=== PATIENT | male | born 1985 | race Caucasian/White ===

== ENCOUNTER 2016-08-25 12:51 | Emergency (ER) | payer MEDICAID ==
[~2016-08-25] VITALS: Ht 185.4 cm; Wt 99.8 kg
[2016-08-25 13:08] VITALS: BP 149/84
--- NOTE | 2016-08-25 15:20 | NUR ---
PT AMBULATED TO BED 3 AT THIS TIME.
--- NOTE | 2016-08-25 15:56 | NUR ---
31/M TO ED WITH C/O LEFT FLANK PAIN X2 DAYS AFTER LIVING HEAVY OBJECTS AT WORK. PT DENIES PAIN UPON URINATION. PAIN /. LUNGS CLEAR BILAT. HR EVEN AND REGULAR. AAOX4. VSS. NO SIGNS OF DISTRESS.
[2016-08-25 16:08] VITALS: BP 149/84
--- NOTE | 2016-08-25 16:08 | NUR ---
Patient discharged with v/s stable. Written and verbal after care instructions given and explained. Patient alert, oriented and verbalized understanding of instructions. Ambulatory with steady gait. All questions addressed prior to discharge. ID band removed. Patient advised to follow up with PMD. Rx of MOTRIN, NORCO, FLEXARIL given. Patient educated on indication of medication including possible reaction and side effects. Opportunity to ask questions provided and answered.
== END 2016-08-25 16:08 | disposition home or self-care (01) ==
LOC: MED 12:51
DX: M62.838 Other muscle spasm (principal)

== ENCOUNTER 2019-09-08 21:38 | Emergency (ER) | payer OTHER ==
[~2019-09-08] VITALS: Ht 188 cm; Wt 90.7 kg
[~2019-09-08 21:38] MED LIST: DOL10 PO
[2019-09-08 21:40] VITALS: BP 118/51
--- NOTE | 2019-09-08 21:40 | NUR ---
PT 34 Y/O MALE BIBA BLS FOR C/O GENERAILZED BODY ACHES 10/10 PAIN S/P TAKING NARCAN. PT STATES HE ADMINISTERED NARCAN TO HIMSELF AFTER TAKING HEROIN X 2 DAYS AGO. PT STATES," IT MADE ME FEEL PAIN ALL OVER AND VERY COLD." PT VSS. RESPIRATIONS ARE EVEN AND UNLABORED. SKIN IS WARM AND DRY TOUCH. NEGATIVE COVID SCREEN. MEDHX: PT DENIES ALLERGIES: NKA
--- NOTE | 2019-09-08 21:40 | NUR ---
PT TAKEN TO CHAIR A. PT ABLE TO AMBULATE WITH STEADY GAIT.
--- NOTE | 2019-09-08 21:46 | NUR ---
ASSESSING PT AT CHAIR A.
[2019-09-08] MEDS ORDERED: ONDANSETRON 4 MG ODT PO ONE (21:50)
[2019-09-08] MEDS ORDERED: DICYCLOMINE 20 MG/2 ML VIAL IM ONE (21:50)
--- NOTE | 2019-09-08 21:58 | NUR ---
BENTYL IM ADMINISTERED VIA LEFT DELTOID. AND PO ZOFRAN GIVEN. PT TOLERATED
--- NOTE | 2019-09-08 22:13 | NUR ---
CONTACTED PT'S MOTHER TO SERVICE PARTS COORDINATOR PT. AND MOTHER DOES NOT WANT TO SERVICE PARTS COORDINATOR
--- NOTE | 2019-09-08 22:23 | NUR ---
PT RESTING IN CHAIR A WITH EYES CLOSED. PT RESPONSIVE TO VERBAL STIMULI. RESPIRATIONS ARE EVEN AND UNALBORED.
--- NOTE | 2019-09-08 22:23 | NUR ---
BIOANALYST CALLED FOR A HOMELESS PACKET AND BUS PASS.
--- NOTE | 2019-09-08 22:50 | NUR ---
PT REFUSING TO LEAVE FAST TRACK CHAIR. OFFERED BUS PASS, HOMELESS RESOURCE PACKET, AND MEAL. PT PROVIDED WITH BLANKET, AND WAS WEARING WEATHER APPROPRAITE CLOTHING. INSTRUCTED PATIENT TO LEAVE PATIENT CARE AREA. PT LEFT TO LOBBY.
== END 2019-09-08 22:25 | disposition home or self-care (01) ==
LOC: MED 21:38
DX: F11.23 Opioid dependence with withdrawal (principal); F11.90 Opioid use, unspecified, uncomplicated; Z79.891 Long term (current) use of opiate analgesic; Z79.899 Other long term (current) drug therapy
CPT/HCPCS: 96372; 99283; J0500; Q0162

== ENCOUNTER 2022-06-10 18:22 | Emergency (ER) | payer OTHER ==
[~2022-06-10] VITALS: Ht 185.4 cm; Wt 95.3 kg
[~2022-06-10 18:22] MED LIST changes: -DOL10 PO; +METH-1550 PO
--- NOTE | 2022-06-10 18:35 | NUR ---
PATIENT LEFT WITHOUT BEING SEEN BY DR. THOMAS. NO FURTHER CARE PROVIDED FOR PATIENT.
--- NOTE | 2022-06-10 18:35 | NUR ---
CALLED X 1. NO SHOW.
--- NOTE | 2022-06-10 19:05 | NUR ---
CALLED [phone]. NO ANSWERING.
--- NOTE | 2022-06-10 21:56 | NUR ---
Patient came back to ER.
[2022-06-10 22:01] VITALS: BP 141/78
--- NOTE | 2022-06-10 22:11 | NUR ---
PT AMB TO ER BED 02
--- NOTE | 2022-06-10 22:15 | NUR ---
ER physician assessing patient.
--- NOTE | 2022-06-10 22:19 | NUR ---
Patient lying in bed, A/Ox4, chest rise and fall symmetrical, no s/s of distress.
[2022-06-10] MEDS ORDERED: BACI-416 TP (23:21)
[2022-06-10] MEDS ORDERED: NAPR-54 PO (23:21)
[2022-06-10] MEDS ORDERED: SULF-59 PO (23:21)
[2022-06-10] MEDS ORDERED: IBUPROFEN 600 MG TAB PO ONE (23:25)
[2022-06-10] MEDS ORDERED: ACETAMINOPHEN EXTRA STRENGTH 500 MG TAB PO ONE (23:25)
[2022-06-10] MEDS ORDERED: ACETAMINOPHEN EXTRA STRENGTH 500 MG TAB ONE (23:30)
[2022-06-10] MEDS ORDERED: IBUPROFEN 600 MG TAB ONE (23:31)
[2022-06-10 23:40] VITALS: BP 128/76
== END 2022-06-10 23:40 | disposition home or self-care (01) ==
LOC: MED 18:22
DX: T23.211A Burn of second degree of right thumb (nail), initial encounter (principal); L03.032 Cellulitis of left toe; F19.10 Other psychoactive substance abuse, uncomplicated; Z79.899 Other long term (current) drug therapy; X08.8XXA Exposure to other specified smoke, fire and flames, initial encounter; Y93.89 Activity, other specified; Y92.89 Other specified places as the place of occurrence of the external cause; Y99.0 Civilian activity done for income or pay
CPT/HCPCS: 73660; 99283; Q0092

== ENCOUNTER 2022-07-27 16:42 | Emergency (ER) | payer OTHER ==
[~2022-07-27] VITALS: Ht 180.3 cm; Wt 77.1 kg
[~2022-07-27 16:42] MED LIST changes: +BACI-416 TP; +NAPR-54 PO; +SULF-59 PO
[2022-07-27 16:47] VITALS: BP 120/62
[2022-07-27] MEDS ORDERED: ONDANSETRON 4 MG/2 ML VIAL IVP ONE (16:50)
--- NOTE | 2022-07-27 16:50 | NUR ---
BIBA TO BED 11.
[2022-07-27] MEDS ORDERED: MIDAZOLAM 5 MG/5 ML VIAL IV ONE (16:55)
[2022-07-27] MEDS ORDERED: NACL 0.9% 1,000 ML IV ONE ×2 (17:15→21:25)
--- NOTE | 2022-07-27 17:26 | NUR ---
PT MOVED TO BED 5
[2022-07-27 17:35] LABS: BASOPHILS % (AUTO) 0.1 % (0.0-2.0); EOSINOPHILS % (AUTO) 0.2 % (0.0-4.0); HEMATOCRIT 40.9 % (36-52); HEMOGLOBIN 13.7 g/dL (12.0-18.0); LYMPHOCYTES # (AUTO) 1.4 K/uL (2.0-11.5); LYMPHOCYTES % (AUTO) 8.5 % (20.5-51.1); MEAN CORPUSCULAR HEMOGLOBIN 29 pg (27-31); MEAN CORPUSCULAR HGB CONC 34 g/dL (33-37); MEAN CORPUSCULAR VOLUME 87.8 fL (80-94); MONOCYTES # (AUTO) 0.9 K/uL (0.8-1.0); MONOCYTES % (AUTO) 5.1 % (1.7-9.3); NEUTROPHILS # (AUTO) 14.6 K/uL (1.8-7.7); NEUTROPHILS % (AUTO) 86.1 % (42.2-75.2); PLATELET COUNT (AUTO) 390 K/uL (140-450); RED BLOOD CELL COUNT(AUTO) 4.65 MIL/uL (4.20-6.10); RED CELL DISTRIBUTION WIDTH 13.5 % (11.6-13.7); WHITE BLOOD COUNT (AUTO) 16.9 K/uL (4.8-10.8)
[2022-07-27] MEDS ORDERED: LORazepam 2 MG/ML VIAL IVP ONE ×6 (17:35→21:25)
[2022-07-27] MEDS ORDERED: LORazepam 2 MG/ML VIAL ONE (17:36)
[2022-07-27 17:49] LABS: ALBUMIN 4.1 g/dL (3.4-5.0); CARBON DIOXIDE 23.4 mmol/L (21-32); CREATININE 0.9 mg/dL (0.6-1.3); POTASSIUM 3.4 mmol/L (3.5-5.1); TOTAL BILIRUBIN 0.9 mg/dL (0.0-1.0)
[2022-07-27] MEDS ORDERED: CLONIDINE HYDROCHLORIDE 0.1 MG TAB PO ONE (17:50)
--- NOTE | 2022-07-27 20:10 | NUR ---
did not recieve report for pt, assumed care for pt at the moment. unable to obtain an ekg on pt due to constant moving.
--- NOTE | 2022-07-27 20:35 | NUR ---
Mother of pt called in, Destini [phone]. Mother requested to speak with doctor, doctor Rayo on phone with mother now.
--- NOTE | 2022-07-27 20:50 | NUR ---
Dr. Rayo examining patient.
--- NOTE | 2022-07-27 22:16 | NUR ---
pt continuing to shout out mumbling words and moving back and forth.
[2022-07-27 23:38] VITALS: BP 124/77
--- NOTE | 2022-07-28 | NUR ---
pt resting in room on merchant patroller
--- NOTE | 2022-07-28 03:00 | NUR ---
pt resting in room on monitor
--- NOTE | 2022-07-28 04:15 | NUR ---
pt stated "can i have water and i want to sleep more to feel better."
[2022-07-28] MEDS ORDERED: ONDA-188 PO (05:22)
[2022-07-28] MEDS ORDERED: IBUP-2213 PO (05:51)
[2022-07-28] MEDS ORDERED: NALO4SPR NS (05:53)
--- NOTE | 2022-07-28 06:12 | NUR ---
called mother of pt for pickup and pt stated she will be here within the hour.
--- NOTE | 2022-07-28 07:16 | NUR ---
PT MOTHER AT BEDSIDE
--- NOTE | 2022-07-28 07:29 | NUR ---
Pt report given to Gabrielle DELAROSA. Transfer of care at this time.
--- NOTE | 2022-07-28 08:15 | NUR ---
Patient discharged with v/s stable. Written and verbal after care instructions given and explained. Patient alert, oriented and verbalized understanding of instructions. Ambulatory with steady gait. All questions addressed prior to discharge. ID band removed. Patient advised to follow up with PMD. Rx of IBUPROFEN, NALOXONE HCI, ONDANSETRON given. Patient educated on indication of medication including possible reaction and side effects. Opportunity to ask questions provided and answered.
== END 2022-07-28 08:15 | disposition home or self-care (01) ==
LOC: MED 16:42
DX: F11.23 Opioid dependence with withdrawal (principal); Z79.899 Other long term (current) drug therapy; Z79.2 Long term (current) use of antibiotics; Z79.1 Long term (current) use of non-steroidal anti-inflammatories (NSAID)
CPT/HCPCS: 36415; 80053; 85025; 93005; 96361; 96374; 96375; 96376; 99284; J2060; J2250; J2405; J7030